=== PATIENT | male | born 1990 | race Caucasian/White ===

== ENCOUNTER 2017-09-10 10:57 | Inpatient (IN) | payer OTHER ==
[2017-09-10 13:03] VITALS: BMI 21.1
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
[2017-09-10] MEDS ORDERED: guaiFENesin/D-METHORPHAN HB 10 ML UNIT-DOSE CUPS PO PRN (14:40)
[2017-09-10] MEDS ORDERED: IBUPROFEN 400 MG TABLET (FP) PO PRN (14:40)
[2017-09-10] MEDS ORDERED: LOPERAMIDE HCL 2 MG CAPSULE PO PRN (14:40)
[2017-09-10] MEDS ORDERED: ACETAMINOPHEN 325 MG TABLET (FP) PO PRN (14:40)
[2017-09-10] MEDS ORDERED: MAG HYDROX/AL HYDROX/SIMETH 30 ML UNIT-DOSE CUP PO PRN (14:40)
[2017-09-10] MEDS ORDERED: MAGNESIUM HYDROX 2400MG/30ML ORAL SUSPENSION 30 ML CUP PO PRN (14:40)
[2017-09-10] MEDS ORDERED: P-EPHED 60MG/TRIPROLIDI 2.5MG TABLET PO PRN (14:40)
[2017-09-10] MEDS ORDERED: hydrOXYzine PAMOATE 50 MG CAPSULE (FP) PO PRN (14:40)
[2017-09-10] MEDS ORDERED: MENTHOL/PHENOL 1 EACH UD MM PRN (14:40)
[2017-09-10] MEDS ORDERED: MAGNESIUM CITRATE 300 ML BOTTLE PO PRN (14:40)
[2017-09-10] MEDS ORDERED: METHADONE HCL 10 MG TABLET (FOR DETOX USE ONLY) PO ONE ×2 (17:00→23:00)
[2017-09-10] MEDS: diazePAM 5 MG TABLET PO PRN ×2 (17:52→22:13)
[2017-09-10] MEDS: NICOTINE 21 MG/24 HOURS TOPICAL PATCH TD SCH (17:53)
[2017-09-10] MEDS: NICOTINE POLACRILEX 2 MG GUM BC PRN (17:54)
[2017-09-10] MEDS: THIAMINE HCL 100 MG TABLET (FP) PO SCH (22:13)
[2017-09-10 22:36] LABS: URINE APPEARANCE CLEAR; URINE BILIRUBIN NEGATIVE (NEGATIVE); URINE BLOOD NEGATIVE (NEGATIVE); URINE COLOR YELLOW; URINE GLUCOSE (UA) NEGATIVE (NEGATIVE); URINE KETONE TRACE (NEGATIVE); URINE LEUK ESTERASE NEGATIVE (NEGATIVE); URINE NITRITE NEGATIVE (NEGATIVE); URINE PROTEIN NEGATIVE (NEGATIVE)
--- NOTE | 2017-09-11 08:43 | PN ---
[facility] COWS - Scale Resting Pulse: 0= [place] 80 or Below Sweatin= Chills/Flushing Restless Observation: 3= Extraneous Movement Pupil Size: 1= Pupils >than Normal Bone or Joint Aches: 2= Severe Diffuse Aches Runny Nose/ Eye Tearin= Runny Nose/Eyes GI Upset > 30mins: 3= Vomiting/Diarrhea Tremor Observation of Outstretched Hands: 2= Slight Tremor Visible Yawning Observation: 1= 1-2x During Session Anxiety or Irritability: 2=Irritable/Anxious Goose Flesh Skin: 0=Smooth Skin COWS Score: 17 S Progress Note (SOAP) Subjective: ALERT,IRRITABLE,ANXIOUS,INTERRUPTED SLEEP,PAIN IN THE BODY AND BACK Objective: 09/11/17 08:41 Vital Signs Temperature 98.1 F 09/11/17 06:00 Pulse Rate 65 09/11/17 06:00 Respiratory Rate 18 09/11/17 06:00 Blood Pressure 110/56 09/11/17 06:00 O2 Sat by Pulse Oximetry (%) EKG NSR,NORMAL ECG Laboratory Last Values Urine Color Yellow 09/10/17 Unknown Urine Appearance Clear 09/10/17 Unknown Urine pH 6.0 (5.0-8.0) 09/10/17 Unknown Ur Specific [place] 1.024 (1.001-1.035) 09/10/17 Unknown Urine Protein Negative (NEGATIVE) 09/10/17 Unknown Urine Glucose (UA) Negative (NEGATIVE) 09/10/17 Unknown Urine Ketones Trace (NEGATIVE) H 09/10/17 Unknown Urine Blood Negative (NEGATIVE) 09/10/17 Unknown Urine Nitrite Negative (NEGATIVE) 09/10/17 Unknown Urine Bilirubin Negative (NEGATIVE) 09/10/17 Unknown Urine Urobilinogen 2.0 mg/dL (0.2-1.0) 09/10/17 Unknown Ur Leukocyte Esterase Negative (NEGATIVE) 09/10/17 Unknown LABS PENDING Assessment: 09/11/17 08:42 WITHDRAWAL SYMPTOM Plan: CONTINUE DETOX
[2017-09-11] MEDS ORDERED: METHADONE HCL 10 MG TABLET (FOR DETOX USE ONLY) PO ONE (10:00)
[2017-09-11] MEDS: PRENATAL VITAMINS W/ FOLIC ACID TABLET (FP) PO SCH (10:11)
[2017-09-11] MEDS: NICOTINE 21 MG/24 HOURS TOPICAL PATCH TD SCH (10:13)
[2017-09-11] MEDS: diazePAM 5 MG TABLET PO PRN ×3 (10:15→18:56)
[2017-09-11] MEDS: NICOTINE POLACRILEX 2 MG GUM BC PRN (10:16)
[2017-09-11 10:25] LABS: HEMATOCRIT 43.5 % (35.4-49); HEMOGLOBIN 15.2 GM/dL (11.7-16.9); MCH 32.5 pg (25.7-33.7); MCHC 34.9 g/dl (32.0-35.9); MEAN CELL VOLUME 93.1 fl (80-96); MEAN PLT VOLUME 7.6 fl (7.5-11.1); PLATELET COUNT 246 K/MM3 (134-434); RBC 4.67 M/mm3 (4.00-5.60); WHITE BLOOD COUNT 7.1 K/mm3 (4.0-10.0)
[2017-09-11 10:31] LABS: CHLORIDE 102 mmol/L (98-107); POTASSIUM 3.6 mmol/L (3.5-5.1); SODIUM 138 mmol/L (136-145)
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
[2017-09-11 11:06] LABS: ALBUMIN 4.4 g/dl (3.4-5.0); ALK PHOS 75 U/L (45-117); ANION GAP 10 (8-16); BILIRUBIN,TOTAL 0.5 mg/dL (0.2-1.0); BLOOD UREA NITROGEN 9 mg/dL (7-18); CALCIUM 8.7 mg/dL (8.5-10.1); CO2 26 mmol/L (21-32); CREATININE 0.7 mg/dL (0.7-1.3); GLUCOSE,RANDOM 90 mg/dL (74-106); SGOT/AST 46 U/L (15-37); SGPT/ALT 13 U/L (12-78)
--- NOTE | 2017-09-11 12:05 | EKG ---
Test Reason : Blood Pressure : / mmHG Vent. Rate : 063 BPM Atrial Rate : 063 BPM P-R Int : 154 ms QRS Dur : 086 ms QT Int : 412 ms P-R-T Axes : 067 065 056 degrees QTc Int : 421 ms NORMAL SINUS RHYTHM NORMAL ECG NO PREVIOUS ECGS AVAILABLE Confirmed by MD Zeferino, Ja ([id number]) on 09/11/2017 12:04:55 PM Referred By: Confirmed By:Ja Mcgarry MD
[2017-09-11] MEDS ORDERED: diphenhydrAMINE HCL 50 MG CAPSULE PO PRN (22:00)
[2017-09-11] MEDS: THIAMINE HCL 100 MG TABLET (FP) PO SCH (22:10)
--- NOTE | 2017-09-12 09:02 | PN ---
[facility] CIWA - CIWA Score Nausea/Vomitin Muscle Tremors: 3 Anxiety: 3 Agitation: 2 Paroxysmal Sweats: 1-Minimal Palms Moist Orientation: 0-Oriented Tacttile Disturbances: 1-Very Mild Itch/Numbness Auditory Disturbances: 1-Very Mild Visual Disturbances: 0-None Headache: 2-Mild CIWA-Ar Total Score: 16 [facility] COWS - Scale Resting Pulse: 0= [place] 80 or Below Sweatin= Chills/Flushing Restless Observation: 3= Extraneous Movement Pupil Size: 1= Pupils >than Normal Bone or Joint Aches: 2= Severe Diffuse Aches Runny Nose/ Eye Tearin= Runny Nose/Eyes GI Upset > 30mins: 2= Nausea/Diarrhea Tremor Observation of Outstretched Hands: 2= Slight Tremor Visible Yawning Observation: 1= 1-2x During Session Anxiety or Irritability: 2=Irritable/Anxious Goose Flesh Skin: 0=Smooth Skin COWS Score: 16 [facility] Progress Note (SOAP) Subjective: ALERT,IRRITABLE,ANXIOUS,INTERRUPTED SLEEP,TREMOR,PAIN IN BODY AND BACK Objective: 09/12/17 09:00 Vital Signs Temperature 97.7 F 09/12/17 06:14 Pulse Rate 61 09/12/17 06:14 Respiratory Rate 18 09/12/17 06:14 Blood Pressure 125/76 09/12/17 06:14 O2 Sat by Pulse Oximetry (%) 09/12/17 09:01 Laboratory Last Values WBC 7.1 K/mm3 (4.0-10.0) 09/11/17 05:45 RBC 4.67 M/mm3 (4.00-5.60) 09/11/17 05:45 Hgb 15.2 GM/dL (11.7-16.9) 09/11/17 05:45 Hct 43.5 % (35.4-49) 09/11/17 05:45 MCV 93.1 fl (80-96) 09/11/17 05:45 MCH 32.5 pg (25.7-33.7) 09/11/17 05:45 MCHC 34.9 g/dl (32.0-35.9) 09/11/17 05:45 RDW 13.0 % (11.9-15.9) 09/11/17 05:45 Plt Count 246 K/MM3 (134-434) 09/11/17 05:45 MPV 7.6 fl (7.5-11.1) 09/11/17 05:45 Sodium 138 mmol/L (136-145) 09/11/17 05:45 Potassium 3.6 mmol/L (3.5-5.1) 09/11/17 05:45 Chloride 102 mmol/L (98-107) 09/11/17 05:45 Carbon Dioxide 26 mmol/L (21-32) 09/11/17 05:45 Anion Gap 10 (8-16) 09/11/17 05:45 BUN 9 mg/dL (7-18) 09/11/17 05:45 Creatinine 0.7 mg/dL (0.7-1.3) 09/11/17 05:45 Creat Clearance w eGFR > 60 (>60) 09/11/17 05:45 Random Glucose 90 mg/dL (74-106) 09/11/17 05:45 Calcium 8.7 mg/dL (8.5-10.1) 09/11/17 05:45 Total Bilirubin 0.5 mg/dL (0.2-1.0) 09/11/17 05:45 AST 46 U/L (15-37) H 09/11/17 05:45 ALT 13 U/L (12-78) 09/11/17 05:45 Alkaline Phosphatase 75 U/L (45-117) 09/11/17 05:45 Total Protein 7.0 g/dl (6.4-8.2) 09/11/17 05:45 Albumin 4.4 g/dl (3.4-5.0) 09/11/17 05:45 Urine Color Yellow 09/10/17 Unknown Urine Appearance Clear 09/10/17 Unknown Urine pH 6.0 (5.0-8.0) 09/10/17 Unknown Ur Specific [place] 1.024 (1.001-1.035) 09/10/17 Unknown Urine Protein Negative (NEGATIVE) 09/10/17 Unknown Urine Glucose (UA) Negative (NEGATIVE) 09/10/17 Unknown Urine Ketones Trace (NEGATIVE) H 09/10/17 Unknown Urine Blood Negative (NEGATIVE) 09/10/17 Unknown Urine Nitrite Negative (NEGATIVE) 09/10/17 Unknown Urine Bilirubin Negative (NEGATIVE) 09/10/17 Unknown Urine Urobilinogen 2.0 mg/dL (0.2-1.0) 09/10/17 Unknown Ur Leukocyte Esterase Negative (NEGATIVE) 09/10/17 Unknown RPR Titer Nonreactive (NONREACTIVE) 09/11/17 05:45 Assessment: 09/12/17 09:01 WITHDRAWAL SYMPTOM Plan: CONTINUE DETOX
[2017-09-12] MEDS: diazePAM 5 MG TABLET PO PRN ×4 (09:36→22:10)
[2017-09-12] MEDS ORDERED: METHADONE HCL 5 MG TABLET (FOR DETOX USE ONLY) PO ONE (10:00)
[2017-09-12] MEDS: PRENATAL VITAMINS W/ FOLIC ACID TABLET (FP) PO SCH (10:08)
[2017-09-12] MEDS: NICOTINE 21 MG/24 HOURS TOPICAL PATCH TD SCH (10:08)
[2017-09-12] MEDS: THIAMINE HCL 100 MG TABLET (FP) PO SCH (22:10)
--- NOTE | 2017-09-13 09:45 | PN ---
S Progress Note (SOAP) Subjective: ALERT,IRRITABLE,ANXIOUS,INTERRUPTED SLEEP,PAIN IN THE BODY Objective: 09/13/17 09:44 Vital Signs Temperature 97.2 F L 09/13/17 06:07 Pulse Rate 64 09/13/17 06:07 Respiratory Rate 18 09/13/17 06:07 Blood Pressure 122/60 09/13/17 06:07 O2 Sat by Pulse Oximetry (%) Assessment: 09/13/17 09:44 WITHDRAWAL SYMPTOM Plan: CONTINUE DETOX
[2017-09-13] MEDS ORDERED: METHADONE HCL 5 MG TABLET (FOR DETOX USE ONLY) PO ONE (10:00)
[2017-09-13] MEDS ORDERED: METHADONE HCL 10 MG TABLET (FOR DETOX USE ONLY) PO ONE (10:24)
--- NOTE | 2017-09-13 10:28 | PN ---
[facility] Progress Note Note: LESS WITHDRAWAL SYMPTOM,MEDICATION ADJUSTED,FOR DISCHARGE IN AM
[2017-09-13] MEDS: NICOTINE 21 MG/24 HOURS TOPICAL PATCH TD SCH (10:49)
[2017-09-13] MEDS: diazePAM 5 MG TABLET PO PRN (10:49)
[2017-09-13] MEDS: PRENATAL VITAMINS W/ FOLIC ACID TABLET (FP) PO SCH (10:49)
--- NOTE | 2017-09-13 17:37 | DS ---
[facility] Detox Discharge Summary Admission Date: 09/10/17 Discharge Date: 09/13/17 - History Present History: Cannabis Dependence, Cocaine Dependence, Opioid Dependence - Physical Exam Results Vital Signs: Vital Signs Temperature 97.7 F 09/13/17 12:49 Pulse Rate 84 09/13/17 12:49 Respiratory Rate 18 09/13/17 12:49 Blood Pressure 102/84 09/13/17 12:49 O2 Sat by Pulse Oximetry (%) Pertinent Admission Physical Exam Findings: Vital Signs Temperature 97.7 F 09/13/17 12:49 Pulse Rate 84 09/13/17 12:49 Respiratory Rate 18 09/13/17 12:49 Blood Pressure 102/84 09/13/17 12:49 O2 Sat by Pulse Oximetry (%) Laboratory Last Values WBC 7.1 K/mm3 (4.0-10.0) 09/11/17 05:45 RBC 4.67 M/mm3 (4.00-5.60) 09/11/17 05:45 Hgb 15.2 GM/dL (11.7-16.9) 09/11/17 05:45 Hct 43.5 % (35.4-49) 09/11/17 05:45 MCV 93.1 fl (80-96) 09/11/17 05:45 MCH 32.5 pg (25.7-33.7) 09/11/17 05:45 MCHC 34.9 g/dl (32.0-35.9) 09/11/17 05:45 RDW 13.0 % (11.9-15.9) 09/11/17 05:45 Plt Count 246 K/MM3 (134-434) 09/11/17 05:45 MPV 7.6 fl (7.5-11.1) 09/11/17 05:45 Sodium 138 mmol/L (136-145) 09/11/17 05:45 Potassium 3.6 mmol/L (3.5-5.1) 09/11/17 05:45 Chloride 102 mmol/L (98-107) 09/11/17 05:45 Carbon Dioxide 26 mmol/L (21-32) 09/11/17 05:45 Anion Gap 10 (8-16) 09/11/17 05:45 BUN 9 mg/dL (7-18) 09/11/17 05:45 Creatinine 0.7 mg/dL (0.7-1.3) 09/11/17 05:45 Creat Clearance w eGFR > 60 (>60) 09/11/17 05:45 Random Glucose 90 mg/dL (74-106) 09/11/17 05:45 Calcium 8.7 mg/dL (8.5-10.1) 09/11/17 05:45 Total Bilirubin 0.5 mg/dL (0.2-1.0) 09/11/17 05:45 AST 46 U/L (15-37) H 09/11/17 05:45 ALT 13 U/L (12-78) 09/11/17 05:45 Alkaline Phosphatase 75 U/L (45-117) 09/11/17 05:45 Total Protein 7.0 g/dl (6.4-8.2) 09/11/17 05:45 Albumin 4.4 g/dl (3.4-5.0) 09/11/17 05:45 Urine Color Yellow 09/10/17 Unknown Urine Appearance Clear 09/10/17 Unknown Urine pH 6.0 (5.0-8.0) 09/10/17 Unknown Ur Specific [place] 1.024 (1.001-1.035) 09/10/17 Unknown Urine Protein Negative (NEGATIVE) 09/10/17 Unknown Urine Glucose (UA) Negative (NEGATIVE) 09/10/17 Unknown Urine Ketones Trace (NEGATIVE) H 09/10/17 Unknown Urine Blood Negative (NEGATIVE) 09/10/17 Unknown Urine Nitrite Negative (NEGATIVE) 09/10/17 Unknown Urine Bilirubin Negative (NEGATIVE) 09/10/17 Unknown Urine Urobilinogen 2.0 mg/dL (0.2-1.0) 09/10/17 Unknown Ur Leukocyte Esterase Negative (NEGATIVE) 09/10/17 Unknown RPR Titer Nonreactive (NONREACTIVE) 09/11/17 05:45 - Medication Discharge Medications: Ambulatory Orders NK [No Known Home Medication] 09/10/17 - Diagnosis (1) Cannabis dependence Current Visit: Yes Status: Acute (2) Cocaine dependence Current Visit: Yes Status: Acute (3) Insomnia Current Visit: Yes Status: Acute (4) Nicotine dependence Current Visit: Yes Status: Acute (5) Opioid dependence with withdrawal Current Visit: Yes Status: Acute - AMA Did Patient Leave Against Medical Advice: Yes
[2017-09-13 18:07] VITALS: BP 149/73; PULSE 93; TEMP 98.4
[2017-09-14] MEDS ORDERED: METHADONE HCL 5 MG TABLET (FOR DETOX USE ONLY) PO ONE (06:00)
[2017-09-14] MEDS ORDERED: METHADONE HCL 10 MG TABLET (FOR DETOX USE ONLY) PO ONE (10:00)
[2017-09-15] MEDS ORDERED: METHADONE HCL 5 MG TABLET (FOR DETOX USE ONLY) PO ONE (06:00)
== END 2017-09-13 17:52 | disposition left against medical advice (07) | DRG 770 ==
LOC: YASAS 10:57 → Y6N 16:02
PROVIDERS: ADMIT Internal Medicine; ATTEND Internal Medicine
PROC: HZ2ZZZZ Detoxification Services for Substance Abuse Treatment (ICD-10-PCS; principal; 2017-09-10)
DX: F11.23 Opioid dependence with withdrawal (principal); F14.20 Cocaine dependence, uncomplicated; F12.20 Cannabis dependence, uncomplicated; F17.210 Nicotine dependence, cigarettes, uncomplicated; F41.8 Other specified anxiety disorders; G47.00 Insomnia, unspecified; R01.1 Cardiac murmur, unspecified
CPT/HCPCS: 36415; 80053; 81003; 85027; 86593; 93005; 93010